=== PATIENT | female | born 1955 | race Caucasian/White ===

== ENCOUNTER → 2017-01-03 | Outpatient (CLI) | payer MEDICARE ==
[~2017-01-03] MED LIST: CALCIUM 500 +1 EAC4 PO; DAILY MULTIPLE1 EAC1 PO; EFFEXOR XR75 MG PO; GABAPENTIN300 MG PO; LEVAQUIN DPS750 MG PO; LEVOTHYROXINE25 MCG PO; LIPITOR DPS10 MG PO; OSTEO BI-FLEX1 EAC1 PO; PROAIR RESPICL90 MCG IH; TYLENOL DPS325 MG PO; VITAMIN D31000 UNIT PO
== END | disposition home or self-care (01) ==
LOC: RAD.S 13:41
DX: N63 Unspecified lump in breast (principal); R92.2 Inconclusive mammogram